=== PATIENT | male | born 1995 | race Caucasian/White ===

== ENCOUNTER 2017-05-13 23:35 | Emergency (ER) | payer OTHER ==
[~2017-05-13] VITALS: Ht 188 cm; Wt 86.1 kg
[~2017-05-13 23:35] MED LIST: Z.0.NO CURRENT MEDS
[2017-05-14 00:01] VITALS: BP 130/61; PULSE 90; RESP 16; TEMP 98.1; O2SAT 97
--- NOTE | 2017-05-14 00:57 | PD ---
HPI Chief Complaint: Injury Time Seen by Provider: 00:34 Travel History International Travel<30 days: No Contact w/Intl Traveler<30days: No Traveled to known affect area: No History of Present Illness HPI 21-year-old male here for evaluation of left ankle pain. Around 10:30 PM the patient rolled his left ankle while playing basketball. He has not been able to bear any weight on the ankle since. Pain is 7 out of 10, mainly located over his left lateral ankle. He denies any other injuries. [facility] Past Medical History Medical History: Denies Significant Hx Diminished Hearing: Yes (T[place]) Immunizations Current: Yes Influenza Vaccination: Yes Social History Alcohol Use: No Tobacco Use: No (QUIT 2016) Substance Use: No Allergies-Medications (Allergen,Severity, Reaction): Uncoded Allergies: NYQUIL (Allergy, Severe, HIVES, 10/19/11) Reported Meds & Prescriptions Reported Meds & Active Scripts Active Reported No Current Meds (Miscellaneous Medication) Misc Review of Systems Except as stated in HPI: all other systems reviewed are Neg Physical Exam Narrative GENERAL: Well-developed, well-nourished, comfortable, no apparent distress. SKIN: Focused skin assessment warm/dry. No lacerations, abrasions, or ecchymosis. CARDIOVASCULAR: Regular rate and rhythm. Bilateral dorsalis pedis pulses are brisk and equal. MUSCULOSKELETAL: Left lateral ankle with moderate swelling over the lateral malleolus with tenderness over the lateral malleolus. No medial malleolar tenderness. The rest of his left foot/ankle is without deformity and without tenderness. No tenderness at the left proximal fibula. All compartments in the left lower extremity are supple. NEUROLOGICAL: Awake and alert. No obvious cranial nerve deficits. Motor grossly within normal limits. Normal speech. PSYCHIATRIC: Appropriate mood and affect; insight and judgment normal. Data Data Last Documented VS Vital Signs Date Time Temp Pulse Resp B/P (MAP) Pulse Ox O2 Delivery O2 Flow Rate FiO2 05/14/17 01:05 84 16 129/58 (81) 100 Room Air 05/14/17 00:01 98.1 Orders Orders Ankle, Complete ([id number]) (05/14/17 ) [facility] Medical Decision Making Medical Screen Exam Complete: Yes Emergency Medical Condition: Yes Differential Diagnosis Left ankle fracture versus sprain. Narrative Course Left ankle x-ray: No acute fracture dislocation. The patient was made aware of x-ray findings. He likely has a sprain of the ATFL. He will be placed in an Lorenzo wrap and given crutches. Ibuprofen every 6 hours for pain. RICE. He will be given the name of the orthopedist information systems security specialist with whom to follow up with should his pain not improve in 1-2 weeks. He was informed on when to return to the emergency department. He verbalizes understanding and agreement with plan. Diagnosis Primary Impression: Left ankle sprain Qualified Codes: S93.402A - Sprain of unspecified ligament of left ankle, initial encounter Referrals: Dante Irizarry MD 1 week Primary Care Physician 3 days Additional Instructions: Follow-up with your primary care physician this week. Follow-up with orthopedist Dr. Irizarry. Return to the emergency department for worsening symptoms or any other concerns. Disposition: 01 DISCHARGE HOME Condition: Stable Kiran Mitchell MD May 14, 2017 00:57
--- NOTE | 2017-05-14 01:01 | RADRPT ---
EXAM DATE/TIME: 05/14/2017 00:47 [place] COMPARISON: No previous studies available for comparison. INDICATIONS : Left ankle pain after basketball injury. MEDICAL HISTORY : None. SURGICAL HISTORY : None. ENCOUNTER: Initial ACUITY: 1 day PAIN SCORE: 8/10 LOCATION: Left lateral ankle. FINDINGS: Three view exam was performed of the left ankle. The bony structures are in normal alignment. Mild soft tissue swelling about the ankle. No evidence of fracture or dislocation. The ankle mortise is i ntact. No radiopaque foreign bodies are seen. Bony mineralization is normal. CONCLUSION: 1. No acute fracture or dislocation. Daquan Cheek MD on May 14, 2017 at 0:58 Board Certified Radiologist. This report was verified electronically.
[2017-05-14 01:05] VITALS: BP 129/58; PULSE 84; RESP 16; O2SAT 100
[2017-05-14] MEDS ORDERED: IBUPROFEN 600 MG TAB PO ONE (01:15)
== END 2017-05-14 01:35 | disposition home or self-care (01) ==
LOC: PHED 23:35
DX: S93.402A Sprain of unspecified ligament of left ankle, initial encounter (principal); H91.90 Unspecified hearing loss, unspecified ear; Z87.891 Personal history of nicotine dependence; X50.1XXA Overexertion from prolonged static or awkward postures, initial encounter; Y93.67 Activity, basketball; Y92.310 Basketball court as the place of occurrence of the external cause; Y99.8 Other external cause status
CPT/HCPCS: 73610; 99283; E0113